=== PATIENT | female | born 1955 | race Caucasian/White ===

== ENCOUNTER 2020-08-21 17:23 | Outpatient (CLI) | payer OTHER, SELFPAY ==
[2020-08-21 17:40] LABS: Basophils Absolute Auto 0.07 K/mm3 (0.00-0.10); Basophils Percent Auto 0.7 % (0.0-1.0); Eosinophils Absolute Auto 0.15 K/mm3 (0.02-0.50); Eosinophils Percent Auto 1.5 % (1.0-6.0); Hematocrit 39.5 % (35.0-49.0); Hemoglobin 13.1 g/dL (12.0-15.0); Immature Granulocyte Absolute 0.03 K/mm3 (0.00-0.00); Immature Granulocyte Percent A 0.3 % (0.0-0.0); Lymphocytes Absolute Auto 2.94 K/mm3 (1.10-4.50); Lymphocytes Percent Auto 29.6 % (18.0-42.0); Mean Corpuscular HGB Conc 33.2 g/dL (32.0-36.0); Mean Corpuscular Volume 87.4 fL (78.0-102.0); Mean Platelet Volume 9.1 fl (9.2-11.8); Monocytes Absolute Auto 0.53 K/mm3 (0.10-0.90); Monocytes Percent Auto 5.3 % (2.0-11.0); Neutrophils Absolute Auto 6.2 K/mm3 (1.7-7.2); Neutrophils Percent Auto 62.6 % (50.0-70.0); Platelet Count Result 314 K/mm3 (150-420); Red Blood Count 4.52 M/mm3 (4.20-5.40); Red Cell Distribution Width 12.9 % (11.6-14.4); White Blood Count 9.9 K/mm3 (4.8-10.8)
[2020-08-21 17:44] LABS: Add Urine Microscopic? NO; Appearance Urine Clear (Clear); Bilirubin Urine Negative (Negative); Blood Urine Negative (Negative); Color Urine Yellow (Yellow); Glucose Urine UA Negative (Negative); Ketones Urine Negative (Negative); Leukocyte Esterase Ur Negative (Negative); Nitrate Urine Negative (Negative); Protein Urine Negative (Negative); Specific Grav Ur <= 1.005 (1.010-1.020); Urobilinogen Urine 0.2 mg/dL (0.2-1.0)
[2020-08-21 18:23] LABS: Alanine Aminotransferase 17 U/L (14-59); Albumin Level 3.7 g/dL (3.4-5.0); Alkaline Phosphatase 131 U/L (46-116); Amylase 66 U/L (25-115); Anion Gap 9 mmol/L (8-16); Aspartate Amino Transferase 17 U/L (15-37); Bilirubin,Total 0.2 mg/dL (0.00-1.00); Blood Urea Nitrogen 9 mg/dL (7-18); Calcium 8.8 mg/dL (8.5-10.1); Carbon Dioxide 30 mmol/L (21-32); Chloride 103 mmol/L (98-108); Estimated Glomerular Filt Rate 56; Glucose 81 mg/dL (70-99); Lipase 112 U/L (73-393); Osmolality Calculated 291 mOsm/kg (285-295); Sodium 142 mmol/L (136-145); Total Protein 7.4 g/dL (6.4-8.2)
== END 2020-08-21 17:24 | disposition home or self-care (01) ==
LOC: CHSLAB 17:27
PROVIDERS: PCP Family Medicine; Visit Provider Family Medicine
DX: R10.2 Pelvic and perineal pain (principal)
CPT/HCPCS: 36415; 80053; 81003; 82150; 83690; 85025; 87086

== ENCOUNTER 2020-10-30 08:31 | Outpatient (CLI) | payer OTHER, SELFPAY ==
--- NOTE | ~2020-10-30 | MM_ITS ---
EXAMINATION: MM screening del BI w belinda HISTORY: Screening mammogram TECHNIQUE: Craniocaudal and mediolateral oblique 3-D tomosynthesis images were obtained and synthetic 2-D images were generated. CAD analysis was submitted and interpreted. COMPARISON: 01/22/2010 bilateral digital screening mammogram examination BREAST PARENCHYMAL COMPOSITION: There are scattered areas of fibroglandular density. FINDINGS: There is no evidence of suspicious mass, calcification, or architectural distortion to sugg est malignancy in either breast. There has been no suspicious interval change. IMPRESSION: 1. No mammographic evidence of malignancy. 2. Recommend routine screening mammography in one year. BI-RADS Category 1: Negative Reviewed, dictated and finalized at location A.
== END 2020-10-30 08:32 | disposition home or self-care (01) ==
LOC: CHSIMG 08:32
PROVIDERS: PCP Family Medicine; Visit Provider Family Medicine
DX: Z12.31 Encounter for screening mammogram for malignant neoplasm of breast (principal)
CPT/HCPCS: 77063; 77067

== ENCOUNTER 2020-11-09 10:51 | Outpatient (CLI) | payer OTHER, SELFPAY ==
--- NOTE | ~2020-11-09 | XR_ITS ---
EXAMINATION: XR abdomen obstructive series DATE: 11/09/2020 11:12 INDICATION: Generalized abdominal pain TECHNIQUE: Upright and supine views of the abdomen were obtained. COMPARISON: None. FINDINGS: The bowel gas pattern is nonspecific. No free intraperitoneal gas is identified. The visual ized lung bases are clear. No definitely dilated loops of bowel are identified. There are phleboliths of the pelvis. 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 IMPRESSION: 1. Nonspecific bowel gas pattern. Reviewed, dictated and finalized at location B.
== END 2020-11-09 10:52 | disposition home or self-care (01) ==
LOC: CHSIMG 10:53
PROVIDERS: PCP Family Medicine; Visit Provider Family Medicine
DX: R10.84 Generalized abdominal pain (principal)
CPT/HCPCS: 74019

== ENCOUNTER 2020-11-13 07:57 | Outpatient (CLI) | payer OTHER, SELFPAY ==
--- NOTE | ~2020-11-13 | CT_ITS ---
EXAMINATION: CT abdomen pelvis w con DATE: 11/13/2020 08:46 INDICATION: Lower abdominal pain for 3 weeks TECHNIQUE: Computed tomography (CT) of the abdomen and pelvis was performed with 100 cc Omnipaque 350 intravenous contrast. Automated exposure control and iterative reconstruction technique were employe d. Exam dose: 181.07 mGy-cm total exam DLP. COMPARISON: 11/19/2020 obstructive series FINDINGS: The lung bases are clear. Normal heart size. No pericardial or pleural effusion. Small sliding hiatal hernia. The liver, gallbladder, bile ducts, spleen, pancreas, pancreatic duct, and adrenal glands and kidneys are unremarkable. No urinary tract calculus or hydroureteronephrosis. The urinary bladder is unremar kable. Normal caliber of the abdominal aorta. No intraperitoneal or retroperitoneal or pelvic mass lesion or adenopathy or ascites. Prominent bilateral adnexal vessels. Small amount of free fluid in the dependent pelvis. Small fat-containing umbilical hernia. There are some fluid levels in the distal small bowel and proximal colon. There is a long continuous segment of terminal and distal ileum with prominent thickening of the bowel wall and mucosal enhancem ent, consistent with infectious or inflammatory enteritis. Up to 7 x 12.7 mm right lower quadrant lymph nodes, likely reactive. Normal caliber of the abdominal aorta. No periaortic or aortocaval lymphadenopathy. Moderately prominent degenerative disc disease at L5-S1. No suspicious osteolytic or osteoblastic lesions. IMPRESSION: Prominent soft tissue thickening of the wall and enhancement of the mucosa of the distal ileum and terminal ileum, consistent with an enteritis, which may be of infectious or inflammatory e tiology Mild right lower quadrant likely reactive mesenteric lymphadenopathy Reviewed, dictated and finalized at Location A. Reviewed, dictated and finalized at location A. IMPRESSION: Prominent soft tissue thickening of the wall and enhancement of th e mucosa of the distal ileum and terminal ileum, consistent with an enteritis, which may be of infectious or inflammatory etiology Mild right lower quadrant likely reactive mesenteric lymphadenopathy
[2020-11-13 08:16] LABS: Estimated Glomerular Filt Rate 59
== END 2020-11-13 07:58 | disposition home or self-care (01) ==
LOC: CHSIMG 07:58
PROVIDERS: PCP Family Medicine; Visit Provider Family Medicine
DX: R10.84 Generalized abdominal pain (principal)
CPT/HCPCS: 74177; Q9967

== ENCOUNTER → 2020-12-18 08:03 | Outpatient (CLI) | payer OTHER, SELFPAY ==
[2020-12-18 19:38] LABS: SARS-CoV-2 RNA PCR Negative
== END ==
PROVIDERS: PCP Family Medicine; Visit Provider Internal Medicine Gastroenterology
DX: Z01.812 Encounter for preprocedural laboratory examination (principal); Z20.822 Contact with and (suspected) exposure to COVID-19
CPT/HCPCS: C9803; U0003; U0005

== ENCOUNTER 2020-12-21 02:27 | Day surgery (SDC) | payer OTHER, SELFPAY ==
[2020-12-14 14:17] VITALS: BMI 18.8
[2020-12-21 10:04] VITALS: BP 134/86; PULSE 99; RESP 18; TEMP 36.5; O2SAT 98; BMI 18.2
[2020-12-21] MEDS: LACTATED RINGERS 1,000 ML 150 ML IV CONT (10:14)
--- NOTE | 2020-12-21 10:59 | PM.HPGS ---
History of Present Illness History of Present Illness Consent: Risks, benefits, and alternatives have been discussed and questions answered. Patient agrees to proceed with procedure. Chief complaint: Abnormal CT Scan, Abdomen Pain Narrative: Anastasiia French is a 65 year old female with abdominal pain and weight loss who had an abnormal CT scan Review of Systems Review of Systems: All systems reviewed & are unremarkable except as noted in HPI and below PMFSH Past Medical History Medical History Abnormal CT scan, colon Tobacco use Social History Social History Smoking packs per day: 0.5 Smoking cigarettes per day: 10.0 Years smoked: 40 Smoking pack-years: 20.00 Smoking status: Current some day smoker Tobacco type: cigarettes Alcohol intake: former Alcohol use details: quit drinking one year ago, was a daily beer drinker Substance use: never Substance use type: does not use Living arrangements: with family Additional living arrangements comments: lives with spouse Spiritual care concerns: No Meds Home Medications and Allergies Home Medications Medication Instructions Recorded Confirmed Type No Home Medications 12/08/20 12/14/20 History Allergies Allergy/AdvReac Type Severity Reaction Status Date / Time No Known Drug Allergies Allergy n/a Verified 12/21/20 10:03 Vital Signs Vital Signs - 24 hr 12/21/20 10:04 Temperature 36.5 C Pulse Rate 99 Respiratory Rate 18 Blood Pressure 134/86 Pulse Oximetry 98 Exam Resp: Auscultation: clear to auscultation bilaterally Cardio: Rate: regular rate Rhythm: regular rhythm GI: GI Palp: Yes Soft to palpation and No Tenderness to palpation present (GI) Assessment and Plan Assessment and plan (1) Abnormal CT scan, gastrointestinal tract: Code(s): R93.3 - Abnormal findings on diagnostic imaging of other parts of digestive tract Status: Acute Assessment and Plan: Colonoscopy with possible biopsy or polypectomy or cautery or injection of substances.
--- NOTE | 2020-12-21 11:13 | WPDANESEPPF ---
Anes - Initial Pre Proc Eval Procedure: Operation Date: 12/21/20 11:15 Proposed Procedures p Colonoscopy - Phuc Worley MD Date/Time: 12/21/20 11:13 Surgeon: Phuc Worley MD Pre Op Diagnosis: Abnormal CT Scan, Abdomen Pain Patient Data Age: 65 Gender: F Height: 1.68 m Weight: 51.3 kg Last Vital Signs Temp 97.7 F 12/21/20 10:04 Pulse 99 12/21/20 10:04 Resp 18 12/21/20 10:04 BP 134/86 12/21/20 10:04 Pulse Ox 98 12/21/20 10:04 Allergies Allergy/AdvReac Type Severity Reaction Status Date / Time No Known Drug Allergies Allergy n/a Verified 12/21/20 10:03 Home Medications Medication Instructions Recorded Confirmed Type No Home Medications 12/08/20 12/14/20 History Patient hx anesthesia problems: none Family hx anesthesia problems: none PMFSH Past Medical History Medical History Abnormal CT scan, colon Tobacco use Social History Social History Smoking packs per day: 0.5 Smoking cigarettes per day: 10.0 Years smoked: 40 Smoking pack-years: 20.00 Smoking status: Current some day smoker Tobacco type: cigarettes Alcohol intake: former Alcohol use details: quit drinking one year ago, was a daily beer drinker Substance use: never Substance use type: does not use Living arrangements: with family Additional living arrangements comments: lives with spouse Spiritual care concerns: No Anes - Eval Final PreProcedure Day of Procedure 12/21/20 11:13 Patient weight: normal Heart: regular rate and rhythm Lungs: clear to auscultation Airway: Mallampati scale class II Neurological: alert and oriented Last oral intake: >/= 8 hours ASA classification: II Emergent: no Anesthetic plan: proceed Anesthesia type and monitoring: general and standard monitoring Informed Consent: The patient's anesthetic plan and its attendant risks and benefits were discussed with the patient/family/POA. Questions were solicited and answers provided to the satisfaction of the patient/family/POA.
[2020-12-21 11:29] VITALS: BP 136/80; PULSE 72; RESP 18; O2SAT 98
[2020-12-21 11:39] VITALS: BP 135/83; PULSE 77; RESP 19; O2SAT 96
[2020-12-21 11:49] VITALS: BP 135/83; PULSE 71; RESP 16; O2SAT 99
== END 2020-12-21 12:06 | disposition home or self-care (01) ==
PROVIDERS: PCP Family Medicine; Visit Provider Internal Medicine Gastroenterology
PROC: 0DJD8ZZ Inspection of Lower Intestinal Tract, Via Natural or Artificial Opening Endoscopic (ICD-10-PCS; CPT 45378; principal; 2020-12-21 11:15)
DX: K52.9 Noninfective gastroenteritis and colitis, unspecified (principal); F17.210 Nicotine dependence, cigarettes, uncomplicated
CPT/HCPCS: 45380; 88305; J7120

== ENCOUNTER 2020-12-24 13:16 | Outpatient (CLI) | payer OTHER, SELFPAY ==
[2020-12-27 13:20] LABS: ANCA Screen Negative (Negative); Myeloperoxidase Ab <1.0 AI (<1.0); Proteinase-3 Ab <1.0 AI (<1.0); S cerevisiae Ab (IgA) 13.7 U (<=20.0); S cerevisiae Ab (IgG) 14.9 U (<=20.0)
== END 2020-12-24 13:17 | disposition home or self-care (01) ==
LOC: ANHLAB 13:18
PROVIDERS: PCP Family Medicine; Visit Provider Internal Medicine Gastroenterology
DX: R93.3 Abnormal findings on diagnostic imaging of other parts of digestive tract (principal)
CPT/HCPCS: 36415; 86021; 86671

== ENCOUNTER 2021-01-26 09:49 | Outpatient (CLI) | payer OTHER, SELFPAY ==
[2021-01-26 10:07] LABS: Hematocrit 36.8 % (37.0-47.0); Hemoglobin 12.1 g/dL (12.0-15.0); Mean Corpuscular HGB Conc 32.9 g/dl (32-36); Mean Corpuscular Hemoglobin 29.4 pg (26-34); Mean Corpuscular Volume 89.5 fl (80-100); Mean Platelet Volume 7.9 fl (7.4-10.4); Platelet Count Result 412 k/mm3 (150-375); Red Blood Count 4.11 M/mm3 (4.2-5.4); Red Cell Distribution Width 15.8 % (11.5-14.5); White Blood Count 11.2 K/mm3 (4.5-10.0)
[2021-01-26 10:20] LABS: Alanine Aminotransferase 12 U/L (4-35); Alkaline Phosphatase 101 U/L (38-126); Anion Gap 11 mmol/L (8-16); Aspartate Amino Transferase 19 U/L (14-36); Bilirubin,Total 0.3 mg/dL (0.2-1.3); Blood Urea Nitrogen 14 mg/dL (7-17); CRP 8.9 mg/dL (<1.0); Calcium 9.1 mg/dL (8.4-10.2); Carbon Dioxide 28 mmol/L (22-30); Chloride 102 mmol/L (98-107); Estimated Glomerular Filt Rate > 60; Glucose 112 mg/dL (65-110); Potassium 3.8 mmol/L (3.4-5.0); Sodium 141 mmol/L (137-145)
[2021-01-26 11:17] LABS: Erythrocyte Sedimentation Rate 58 mm/hr (0-20)
== END 2021-01-26 09:50 | disposition home or self-care (01) ==
PROVIDERS: PCP Family Medicine; Visit Provider Nurse Practitioner Family
DX: R10.9 Unspecified abdominal pain (principal)
CPT/HCPCS: 36415; 80053; 85027; 85652; 86140

== ENCOUNTER 2021-03-04 11:22 | Outpatient (NON) | payer OTHER, SELFPAY ==
[2021-03-11 20:01] LABS: Calprotectin, Stool 677 mcg/g
== END 2021-03-04 11:23 | disposition home or self-care (01) ==
LOC: CHSLAB 11:24
PROVIDERS: Visit Provider Internal Medicine Gastroenterology
DX: K50.119 Crohn's disease of large intestine with unspecified complications (principal)
CPT/HCPCS: 83993

== ENCOUNTER 2021-12-02 13:57 | Outpatient (CLI) | payer OTHER, SELFPAY ==
[2021-12-02 14:11] LABS: Basophils Absolute Auto 0.06 K/mm3 (0.00-0.10); Basophils Percent Auto 0.7 % (0.0-1.0); Eosinophils Absolute Auto 0.21 K/mm3 (0.02-0.50); Eosinophils Percent Auto 2.5 % (1.0-6.0); Hematocrit 39.5 % (35.0-49.0); Hemoglobin 13.2 g/dL (12.0-15.0); Immature Granulocyte Absolute 0.01 K/mm3 (0.00-0.00); Immature Granulocyte Percent A 0.1 % (0.0-0.0); Lymphocytes Absolute Auto 3.88 K/mm3 (1.10-4.50); Lymphocytes Percent Auto 45.6 % (18.0-42.0); Mean Corpuscular HGB Conc 33.4 g/dL (32.0-36.0); Mean Corpuscular Hemoglobin 29.4 pg (27.0-31.0); Mean Platelet Volume 9.3 fl (9.2-11.8); Monocytes Absolute Auto 0.44 K/mm3 (0.10-0.90); Monocytes Percent Auto 5.2 % (2.0-11.0); Neutrophils Absolute Auto 3.9 K/mm3 (1.7-7.2); Neutrophils Percent Auto 45.9 % (50.0-70.0); Platelet Count Result 247 K/mm3 (150-420); Red Blood Count 4.49 M/mm3 (4.20-5.40); Red Cell Distribution Width 12.8 % (11.6-14.4); White Blood Count 8.5 K/mm3 (4.8-10.8)
[2021-12-02 14:33] LABS: Albumin Level 3.8 g/dL (3.4-5.0); Alkaline Phosphatase 104 U/L (46-116); Anion Gap 11 mmol/L (8-16); Aspartate Amino Transferase < 10 U/L (15-37); Bilirubin,Total 0.2 mg/dL (0.00-1.00); Blood Urea Nitrogen 11 mg/dL (7-18); CRP < 0.5 mg/dL (0.0-0.9); Calcium 9.1 mg/dL (8.5-10.1); Carbon Dioxide 27 mmol/L (21-32); Chloride 103 mmol/L (98-108); Estimated Glomerular Filt Rate > 60; Glucose 107 mg/dL (70-99); Osmolality Calculated 291 mOsm/kg (285-295); Potassium 3.8 mmol/L (3.5-5.1); Sodium 141 mmol/L (136-145); Total Protein 7.7 g/dL (6.4-8.2)
[2021-12-02 14:47] LABS: Alanine Aminotransferase 16 U/L (14-59)
[2021-12-10 01:07] LABS: Calprotectin, Stool 643 mcg/g
== END 2021-12-02 13:58 | disposition home or self-care (01) ==
LOC: CHSLAB 14:02
PROVIDERS: PCP Family Medicine; Visit Provider Internal Medicine Gastroenterology
DX: K50.013 Crohn's disease of small intestine with fistula (principal); Z79.899 Other long term (current) drug therapy
CPT/HCPCS: 36415; 80053; 83993; 85025; 86140

== ENCOUNTER 2022-03-08 10:19 | Outpatient (CLI) | payer OTHER, SELFPAY ==
--- NOTE | ~2022-03-08 | XR_ITS ---
XR hand LT min 3V DATE: 03/08/2022 10:42 INDICATION: Left hand and finger pain TECHNIQUE: 3 views of left hand COMPARISON: None FINDINGS: There is osteopenia. No fracture, dislocation, periosteal reaction or bone destruction, erosive change or chondrocalcinosi s. Joint spaces are relatively preserved. IMPRESSION: Osteopenia Reviewed, dictated and finalized at location B. TER IMPRESSION: Osteopenia
== END 2022-03-08 10:20 | disposition home or self-care (01) ==
LOC: CHSIMG 10:21
PROVIDERS: PCP Family Medicine; Visit Provider Family Medicine
DX: M65.30 Trigger finger, unspecified finger (principal)
CPT/HCPCS: 73130

== ENCOUNTER 2022-03-10 10:12 | Outpatient (CLI) | payer OTHER, SELFPAY ==
--- NOTE | ~2022-03-10 | DEXA_ITS ---
Bone Density Report Name: LUCIANA MOJICA Age: 66 Sex: Female Ethnicity: White Date of : 1955 Indication: postmenopausal; screening for osteoporosis; height loss; Referring Provider: Anselmo Avalos Study: Bone densitometry was performed. Exam Date: March 10, 2022 Accession number: [id number] Bone Density: Region BMD T-score Z-score Classification AP Spine(L1-L4) 0.721 -3.0 -1.2 Osteoporosis Femoral Neck (Left) 0.358 -4.4 -2.9 Osteoporosis Total Hip (Left) 0.466 -3.9 -2.7 Osteoporosis Femoral Neck (Right) 0.552 -2.7 -1.2 Osteoporosis Total Hip (Right) 0.620 -2.6 -1.4 Osteoporosis Femoral Neck Mean 0.455 -3.6 -2.1 Osteoporosis Total Hip Mean 0.543 -3.3 -2.1 Osteoporosis World Health Organization criteria for BMD impression classify patients as: Normal (T-score at or above -1.0), Osteopenia (T-score between -1.0 and -2.5), or Osteoporosis (T-score at or below -2.5). 10-year Fracture Risk: FRAX not reported because: Some T-score for Spine Total or Hip Total or Femoral Neck at or below -2.5 Clinical Information Provided by Patient: Smokes Patient maximum height was 66 Menopause Age: 50 No regular weight bearing exercise Does not regularly consume dairy products Drinks caffeinated beverages Onset of menses at age 15 Number of children 6 Impression: The patient has osteoporosis, based on the Left Femoral Neck T-score. The patient has risk factors, including: smoking. Discussion: HIGH RISK OF FRACTURE. BONE DENSITY IS UNDESIRABLY LOW AT ONE OR MORE SKELETAL SITES, CONSISTENT WITH OSTEOPOROSIS. ALSO, BONE DENSITY IS LOWER THAN EXPECTED FOR AGE AND SEX AT ONE OR MORE SKELETAL SITES; RECOMMEND A DILIGENT SEARCH FOR SECONDARY CAUSES OF BONE LOSS. This patient's lowest T-score meets the World Health Organization's (WHO) criteria for osteoporosis at one or more sites (T-score -2.5 or below). In untreated patients, the risk of osteoporotic fracture increases approximately two-fold for each 1.0 SD decrease in T-score. Low bone density is not the only risk factor for fracture; also consider factors such as patient's age, frailty or poor health, risk of falling, risk of injury, previous osteoporotic fracture, family history of osteoporosis, cigarette smoking, low body weight, etc. Not everyone with low bone mineral density has osteoporosis; osteomalacia and other metabolic bone disorders should also be considered. Patients who have osteoporosis should be evaluated for specific diseases and conditions (secondary causes) that may cause or contribute to bone loss. The [place] [employer] (AACE) and National Osteoporosis Foundation (NOF) recommend pharmacologic intervention for all postmenopausal women whose T-score is in this range. Also, this patient
== END 2022-03-10 10:13 | disposition home or self-care (01) ==
LOC: CHSIMG 10:13
PROVIDERS: PCP Family Medicine; Visit Provider Family Medicine
DX: Z78.0 Asymptomatic menopausal state (principal)
CPT/HCPCS: 77080

== ENCOUNTER 2022-07-21 14:01 | Outpatient (CLI) | payer OTHER, SELFPAY ==
[2022-07-21 14:18] LABS: Basophils Absolute Auto 0.05 K/mm3 (0.00-0.10); Basophils Percent Auto 0.5 % (0.0-1.0); Eosinophils Absolute Auto 0.16 K/mm3 (0.02-0.50); Eosinophils Percent Auto 1.5 % (1.0-6.0); Hematocrit 38.3 % (35.0-49.0); Hemoglobin 13.1 g/dL (12.0-15.0); Immature Granulocyte Absolute 0.03 K/mm3 (0.00-0.00); Immature Granulocyte Percent A 0.3 % (0.0-0.0); Lymphocytes Absolute Auto 4.55 K/mm3 (1.10-4.50); Lymphocytes Percent Auto 43.3 % (18.0-42.0); Mean Corpuscular HGB Conc 34.2 g/dL (32.0-36.0); Mean Corpuscular Hemoglobin 31.3 pg (27.0-31.0); Mean Corpuscular Volume 91.4 fL (78.0-102.0); Mean Platelet Volume 9.4 fl (9.2-11.8); Monocytes Absolute Auto 0.42 K/mm3 (0.10-0.90); Neutrophils Absolute Auto 5.3 K/mm3 (1.7-7.2); Neutrophils Percent Auto 50.4 % (50.0-70.0); Platelet Count Result 238 K/mm3 (150-420); Red Blood Count 4.19 M/mm3 (4.20-5.40); Red Cell Distribution Width 12.2 % (11.6-14.4); White Blood Count 10.5 K/mm3 (4.8-10.8)
[2022-07-21 15:17] LABS: Alanine Aminotransferase 24 U/L (14-59); Albumin Level 4.2 g/dL (3.4-5.0); Alkaline Phosphatase 105 U/L (46-116); Anion Gap 10 mmol/L (8-16); Aspartate Amino Transferase 19 U/L (15-37); Bilirubin,Total 0.3 mg/dL (0.00-1.00); Blood Urea Nitrogen 14 mg/dL (7-18); Calcium 9.1 mg/dL (8.5-10.1); Carbon Dioxide 31 mmol/L (21-32); Chloride 102 mmol/L (98-108); Estimated Glomerular Filt Rate 56; Glucose 139 mg/dL (70-99); Osmolality Calculated 298 mOsm/kg (285-295); Potassium 3.8 mmol/L (3.5-5.1); Sodium 143 mmol/L (136-145); Total Protein 7.9 g/dL (6.4-8.2)
[2022-07-21 15:28] LABS: CRP < 0.5 mg/dL (0.0-0.9)
== END 2022-07-21 14:02 | disposition home or self-care (01) ==
PROVIDERS: PCP Family Medicine; Visit Provider Internal Medicine Gastroenterology
DX: K50.013 Crohn's disease of small intestine with fistula (principal); Z79.899 Other long term (current) drug therapy
CPT/HCPCS: 36415; 80053; 85025; 86140

== ENCOUNTER 2022-08-23 13:10 | Outpatient (CLI) | payer MEDICARE, MEDICAID, SELFPAY ==
[2022-08-23 13:36] LABS: Hemoglobin A1C 5.5 % (<5.7)
== END 2022-08-23 13:11 | disposition home or self-care (01) ==
PROVIDERS: PCP Family Medicine; Visit Provider Family Medicine
DX: R73.9 Hyperglycemia, unspecified (principal); I10 Essential (primary) hypertension
CPT/HCPCS: 36415; 83036

== ENCOUNTER 2022-09-17 07:24 | Outpatient (CLI) | payer MEDICARE, MEDICAID, SELFPAY ==
--- NOTE | ~2022-09-17 | MR_ITS ---
MRI of the brain Clinical History: Dizziness and giddiness Technique: Axial and sagittal T1-weighted images were acquired. These were followed by axial T2-weigh ellen, diffusion weighted, gradient, and FLAIR images. Following intravenous administration of 12 cc Mu ltiHance gadolinium, T1-weighted fat-sat imaging was performed in the axial and coronal planes. Findings: There is no acute infarct, intracranial hemorrhage, or mass lesion. Small focal area of FLA IR hyperintensity noted in the left periventricular white matter. Ventricles and subarachnoid spaces are unremarkable. Orbits are unremarkable. Paranasal sinuses and m astoid air cells are clear. Major intracranial flow voids appear intact. Sagittal midline structures are intact. No abnormal postcontrast enhancement identified. IMPRESSION: No acute infarct, intracranial hemorrhage, or mass lesion. Probable minimal chronic microvascular ischemic change, as above. Reviewed, dictated and finalized at location .
[2022-09-17 07:53] LABS: Estimated Glomerular Filt Rate 58
== END 2022-09-17 07:25 | disposition home or self-care (01) ==
LOC: CHSIMG 07:26
PROVIDERS: PCP Family Medicine; Visit Provider Family Medicine
DX: R42 Dizziness and giddiness (principal)
CPT/HCPCS: 70553; A9577

== ENCOUNTER 2022-10-31 12:18 | Outpatient (CLI) | payer MEDICARE, MEDICAID, SELFPAY ==
[2022-10-31 12:56] LABS: Basophils Absolute Auto 0.06 K/mm3 (0.00-0.10); Basophils Percent Auto 0.7 % (0.0-1.0); Eosinophils Absolute Auto 0.11 K/mm3 (0.02-0.50); Eosinophils Percent Auto 1.4 % (1.0-6.0); Hematocrit 34.1 % (35.0-42.0); Immature Granulocyte Absolute 0.04 K/mm3 (0.00-0.00); Immature Granulocyte Percent A 0.5 % (0.0-0.0); Lymphocytes Absolute Auto 3.57 K/mm3 (1.10-4.50); Lymphocytes Percent Auto 43.9 % (18.0-42.0); Mean Corpuscular HGB Conc 35.2 g/dL (32.0-36.0); Mean Corpuscular Hemoglobin 30.7 pg (27.0-31.0); Mean Corpuscular Volume 87.2 fL (78.0-102.0); Monocytes Absolute Auto 0.42 K/mm3 (0.10-0.90); Monocytes Percent Auto 5.2 % (2.0-11.0); Neutrophils Absolute Auto 3.9 K/mm3 (1.7-7.2); Neutrophils Percent Auto 48.3 % (50.0-70.0); Platelet Count Result 259 K/mm3 (150-420); Red Blood Count 3.91 M/mm3 (4.20-5.40); Red Cell Distribution Width 12.2 % (11.6-14.4); White Blood Count 8.1 K/mm3 (4.8-10.8)
[2022-10-31 13:47] LABS: Alanine Aminotransferase 35 U/L (14-59); Albumin Level 3.8 g/dL (3.4-5.0); Alkaline Phosphatase 116 U/L (46-116); Anion Gap 7 mmol/L (8-16); Aspartate Amino Transferase 20 U/L (15-37); Bilirubin,Total 0.3 mg/dL (0.00-1.00); Blood Urea Nitrogen 16 mg/dL (7-18); CRP 0.5 mg/dL (0.0-0.9); Calcium 9.2 mg/dL (8.5-10.1); Carbon Dioxide 33 mmol/L (21-32); Chloride 102 mmol/L (98-108); Estimated Glomerular Filt Rate 56; Glucose 103 mg/dL (70-99); Osmolality Calculated 295 mOsm/kg (285-295); Potassium 3.6 mmol/L (3.5-5.1); Sodium 142 mmol/L (136-145); Total Protein 7.2 g/dL (6.4-8.2)
[2022-11-02 11:17] LABS: NIL 0.08 IU/mL; Quantiferon TB Plus, 1T NEGATIVE (NEGATIVE); TB1-NIL 0.03 IU/mL; TB2-NIL 0.01 IU/mL
== END 2022-10-31 12:19 | disposition home or self-care (01) ==
LOC: CHSLAB 12:21
PROVIDERS: PCP Family Medicine; Visit Provider Internal Medicine Gastroenterology
DX: K50.819 Crohn's disease of both small and large intestine with unspecified complications (principal); Z79.899 Other long term (current) drug therapy
CPT/HCPCS: 36415; 80053; 85025; 86140; 86480

== ENCOUNTER 2022-12-02 11:46 | Outpatient (CLI) | payer MEDICARE, MEDICAID, SELFPAY ==
[2022-12-09 20:32] LABS: Calprotectin, Stool 252 mcg/g
== END 2022-12-02 11:47 | disposition home or self-care (01) ==
LOC: CHSLAB 11:46
PROVIDERS: PCP Family Medicine; Visit Provider Internal Medicine Gastroenterology
DX: K50.819 Crohn's disease of both small and large intestine with unspecified complications (principal); R19.5 Other fecal abnormalities
CPT/HCPCS: 83993

== ENCOUNTER 2023-02-01 11:24 | Outpatient (CLI) | payer MEDICARE, MEDICAID, SELFPAY ==
[2023-02-01 11:41] LABS: Appearance Urine Clear (Clear); Basophils Absolute Auto 0.07 K/mm3 (0.00-0.10); Bilirubin Urine Negative (Negative); Blood Urine Negative (Negative); Color Urine Light Yellow (Yellow); Eosinophils Absolute Auto 0.11 K/mm3 (0.02-0.50); Eosinophils Percent Auto 1.5 % (1.0-6.0); Glucose Urine UA Negative (Negative); Hemoglobin 13.1 g/dL (11.7-13.8); Immature Granulocyte Absolute 0.02 K/mm3 (0.00-0.00); Immature Granulocyte Percent A 0.3 % (0.0-0.0); Ketones Urine Negative (Negative); Leukocyte Esterase Ur Negative (Negative); Lymphocytes Percent Auto 41.4 % (18.0-42.0); Mean Corpuscular HGB Conc 34.5 g/dL (32.0-36.0); Mean Corpuscular Hemoglobin 30.8 pg (27.0-31.0); Mean Corpuscular Volume 89.2 fL (78.0-102.0); Mean Platelet Volume 9.1 fl (9.2-11.8); Monocytes Absolute Auto 0.41 K/mm3 (0.10-0.90); Monocytes Percent Auto 5.7 % (2.0-11.0); Neutrophils Absolute Auto 3.6 K/mm3 (1.7-7.2); Neutrophils Percent Auto 50.1 % (50.0-70.0); Nitrate Urine Negative (Negative); Platelet Count Result 221 K/mm3 (150-420); Protein Urine Negative (Negative); Red Blood Count 4.26 M/mm3 (4.20-5.40); Red Cell Distribution Width 12.3 % (11.6-14.4); Specific Grav Ur <= 1.005 (1.010-1.020); Urobilinogen Urine 0.2 mg/dL (0.2-1.0); White Blood Count 7.3 K/mm3 (4.8-10.8)
[2023-02-01 11:46] LABS: Add Urine Microscopic? NO
[2023-02-01 11:47] LABS: Creatinine Urine < 13.00 mg/dL (40-278); Microalbumin Urine Random < 13.0 mg/L
[2023-02-01 13:00] LABS: Alanine Aminotransferase 23 U/L (14-59); Alkaline Phosphatase 93 U/L (46-116); Anion Gap 11 mmol/L (8-16); Aspartate Amino Transferase 13 U/L (15-37); Bilirubin,Total 0.4 mg/dL (0.00-1.00); Blood Urea Nitrogen 13 mg/dL (7-18); Calcium 9.2 mg/dL (8.5-10.1); Carbon Dioxide 29 mmol/L (21-32); Chloride 102 mmol/L (98-108); Cholesterol 226 mg/dL (0-200); Estimated Glomerular Filt Rate > 60; Glucose 100 mg/dL (70-99); HDL Direct 75 mg/dL (40-60); LDL Cholesterol Calculated 137 mg/dL (<130); Osmolality Calculated 294 mOsm/kg (285-295); Sodium 142 mmol/L (136-145); Thyroid Stimulating Hormone 1.99 uIU/mL (0.36-3.74); Total Protein 7.4 g/dL (6.4-8.2); Triglycerides 72 mg/dL (0-150)
== END 2023-02-01 11:25 | disposition home or self-care (01) ==
LOC: CHSLAB 11:28
PROVIDERS: PCP Family Medicine; Visit Provider Family Medicine
DX: I10 Essential (primary) hypertension (principal)
CPT/HCPCS: 36415; 80053; 80061; 81003; 82043; 84443; 85025

== ENCOUNTER 2023-02-06 09:31 | Outpatient (CLI) | payer MEDICARE, MEDICAID, SELFPAY ==
[2023-02-06 09:55] LABS: Basophils Absolute Auto 0.05 K/mm3 (0.00-0.10); Basophils Percent Auto 0.6 % (0.0-1.0); Eosinophils Absolute Auto 0.08 K/mm3 (0.02-0.50); Hematocrit 37.5 % (35.0-42.0); Hemoglobin 12.9 g/dL (11.7-13.8); Immature Granulocyte Absolute 0.03 K/mm3 (0.00-0.00); Immature Granulocyte Percent A 0.4 % (0.0-0.0); Lymphocytes Absolute Auto 2.31 K/mm3 (1.10-4.50); Lymphocytes Percent Auto 29.1 % (18.0-42.0); Mean Corpuscular HGB Conc 34.4 g/dL (32.0-36.0); Mean Corpuscular Hemoglobin 30.4 pg (27.0-31.0); Mean Corpuscular Volume 88.2 fL (78.0-102.0); Monocytes Absolute Auto 0.38 K/mm3 (0.10-0.90); Monocytes Percent Auto 4.8 % (2.0-11.0); Neutrophils Absolute Auto 5.1 K/mm3 (1.7-7.2); Neutrophils Percent Auto 64.1 % (50.0-70.0); Platelet Count Result 217 K/mm3 (150-420); Red Blood Count 4.25 M/mm3 (4.20-5.40); Red Cell Distribution Width 12.1 % (11.6-14.4); White Blood Count 7.9 K/mm3 (4.8-10.8)
[2023-02-06 10:31] LABS: Alanine Aminotransferase 22 U/L (14-59); Albumin Level 3.9 g/dL (3.4-5.0); Alkaline Phosphatase 87 U/L (46-116); Anion Gap 10 mmol/L (8-16); Aspartate Amino Transferase 13 U/L (15-37); Bilirubin,Total 0.4 mg/dL (0.00-1.00); Blood Urea Nitrogen 16 mg/dL (7-18); Calcium 9.2 mg/dL (8.5-10.1); Carbon Dioxide 31 mmol/L (21-32); Chloride 101 mmol/L (98-108); Estimated Glomerular Filt Rate > 60; Glucose 104 mg/dL (70-99); Osmolality Calculated 295 mOsm/kg (285-295); Potassium 3.7 mmol/L (3.5-5.1); Sodium 142 mmol/L (136-145); Total Protein 7.3 g/dL (6.4-8.2)
[2023-02-06 10:46] LABS: CRP < 0.5 mg/dL (0.0-0.9)
== END 2023-02-06 09:32 | disposition home or self-care (01) ==
LOC: CHSLAB 09:34
PROVIDERS: PCP Family Medicine; Visit Provider Internal Medicine Gastroenterology
DX: K50.819 Crohn's disease of both small and large intestine with unspecified complications (principal); R19.5 Other fecal abnormalities; Z79.899 Other long term (current) drug therapy
CPT/HCPCS: 36415; 80053; 85025; 86140

== ENCOUNTER 2023-03-21 13:49 | Outpatient (CLI) | payer MEDICARE, MEDICAID, SELFPAY ==
[2023-03-26 19:26] LABS: Calprotectin, Stool 114 mcg/g
== END 2023-03-21 13:50 | disposition home or self-care (01) ==
LOC: CHSLAB 13:52
PROVIDERS: PCP Family Medicine; Visit Provider Internal Medicine Gastroenterology
DX: K50.819 Crohn's disease of both small and large intestine with unspecified complications (principal); R19.5 Other fecal abnormalities
CPT/HCPCS: 83993

== ENCOUNTER 2023-04-06 15:58 | Outpatient (CLI) | payer MEDICARE, MEDICAID, SELFPAY ==
[2023-04-13 18:27] LABS: Calprotectin, Stool 631 mcg/g
== END 2023-04-06 15:59 | disposition home or self-care (01) ==
LOC: CHSLAB 16:00
PROVIDERS: PCP Family Medicine; Visit Provider Internal Medicine Gastroenterology
DX: K50.819 Crohn's disease of both small and large intestine with unspecified complications (principal); R19.5 Other fecal abnormalities
CPT/HCPCS: 83993

== ENCOUNTER 2023-06-07 13:44 | Outpatient (CLI) | payer MEDICARE, MEDICAID, SELFPAY ==
[2023-06-07 14:06] LABS: Creatinine Urine 136.46 mg/dL (40-278); MALB Creatinine Ratio 9.5 mg/g (0-30); Microalbumin Urine Random < 13.0 mg/L
[2023-06-07 14:25] LABS: Anion Gap 8 mmol/L (8-16); Blood Urea Nitrogen 17 mg/dL (7-18); Calcium 8.7 mg/dL (8.5-10.1); Carbon Dioxide 31 mmol/L (21-32); Chloride 100 mmol/L (98-108); Estimated Glomerular Filt Rate > 60; Glucose 137 mg/dL (70-99); Osmolality Calculated 291 mOsm/kg (285-295); Potassium 3.4 mmol/L (3.5-5.1); Sodium 139 mmol/L (136-145)
== END 2023-06-07 13:45 | disposition home or self-care (01) ==
LOC: CHSLAB 13:47
PROVIDERS: PCP Family Medicine; Visit Provider Family Medicine
DX: I10 Essential (primary) hypertension (principal)
CPT/HCPCS: 36415; 80048; 82043

== ENCOUNTER 2023-06-23 10:07 | Outpatient (CLI) | payer MEDICARE, MEDICAID, SELFPAY ==
[2023-06-23 10:58] LABS: Anion Gap 10 mmol/L (8-16); Blood Urea Nitrogen 19 mg/dL (7-18); Calcium 8.7 mg/dL (8.5-10.1); Carbon Dioxide 31 mmol/L (21-32); Chloride 101 mmol/L (98-108); Estimated Glomerular Filt Rate > 60; Glucose 89 mg/dL (70-99); Osmolality Calculated 295 mOsm/kg (285-295); Potassium 3.7 mmol/L (3.5-5.1); Sodium 142 mmol/L (136-145)
== END 2023-06-23 10:08 | disposition home or self-care (01) ==
LOC: CHSLAB 10:12
PROVIDERS: PCP Family Medicine; Visit Provider Family Medicine
DX: I10 Essential (primary) hypertension (principal)
CPT/HCPCS: 36415; 80048

== ENCOUNTER 2023-08-08 11:59 | Outpatient (CLI) | payer MEDICARE, MEDICAID, SELFPAY ==
[2023-08-08 12:21] LABS: Basophils Absolute Auto 0.05 K/mm3 (0.00-0.10); Basophils Percent Auto 0.5 % (0.0-1.0); Eosinophils Absolute Auto 0.12 K/mm3 (0.02-0.50); Eosinophils Percent Auto 1.3 % (1.0-6.0); Hematocrit 39.2 % (35.0-42.0); Hemoglobin 13.2 g/dL (11.7-13.8); Immature Granulocyte Absolute 0.02 K/mm3 (0.00-0.00); Immature Granulocyte Percent A 0.2 % (0.0-0.0); Lymphocytes Percent Auto 39.1 % (18.0-42.0); Mean Corpuscular HGB Conc 33.7 g/dL (32-36); Mean Corpuscular Hemoglobin 29.9 pg (27.0-31.0); Mean Corpuscular Volume 88.7 fL (78.0-102.0); Mean Platelet Volume 8.7 fl (9.2-11.8); Monocytes Absolute Auto 0.61 K/mm3 (0.10-0.90); Monocytes Percent Auto 6.6 % (2.0-11.0); Neutrophils Absolute Auto 4.81 K/mm3 (1.70-7.20); Neutrophils Percent Auto 52.3 % (50.0-70.0); Platelet Count Result 234 K/mm3 (150-420); Red Blood Count 4.42 M/mm3 (4.20-5.40); Red Cell Distribution Width 12.8 % (11.6-14.4); White Blood Count 9.2 K/mm3 (4.8-10.8)
[2023-08-08 13:10] LABS: Alanine Aminotransferase 26 U/L (14-59); Albumin Level 3.8 g/dL (3.4-5.0); Alkaline Phosphatase 69 U/L (46-116); Anion Gap 7 mmol/L (4-12); Aspartate Amino Transferase 18 U/L (15-37); Bilirubin,Total 0.4 mg/dL (0.00-1.00); Blood Urea Nitrogen 14 mg/dL (7-18); Calcium 8.8 mg/dL (8.5-10.1); Carbon Dioxide 33 mmol/L (21-32); Chloride 103 mmol/L (98-108); Estimated Glomerular Filt Rate 57; Glucose 83 mg/dL (70-99); Osmolality Calculated 295 mOsm/kg (285-295); Potassium 3.6 mmol/L (3.5-5.1); Sodium 143 mmol/L (136-145); Total Protein 7.2 g/dL (6.4-8.2)
[2023-08-08 13:28] LABS: CRP < 0.5 mg/dL (0.0-0.9)
== END 2023-08-08 12:00 | disposition home or self-care (01) ==
LOC: CHSLAB 12:01
PROVIDERS: PCP Family Medicine; Visit Provider Internal Medicine Gastroenterology
DX: K50.013 Crohn's disease of small intestine with fistula (principal); Z79.899 Other long term (current) drug therapy
CPT/HCPCS: 36415; 80053; 85025; 86140

== ENCOUNTER 2023-12-25 11:39 | Outpatient (CLI) | payer MEDICARE, MEDICAID, SELFPAY ==
[2023-12-25 11:58] LABS: Basophils Absolute Auto 0.05 K/mm3 (0.00-0.10); Basophils Percent Auto 0.7 % (0.0-1.0); Eosinophils Absolute Auto 0.11 K/mm3 (0.02-0.50); Eosinophils Percent Auto 1.5 % (1.0-6.0); Hematocrit 38.1 % (35.0-42.0); Hemoglobin 13.3 g/dL (11.7-13.8); Immature Granulocyte Absolute 0.02 K/mm3 (0.00-0.00); Immature Granulocyte Percent A 0.3 % (0.0-0.0); Lymphocytes Absolute Auto 3.25 K/mm3 (1.10-4.50); Lymphocytes Percent Auto 43.3 % (18.0-42.0); Mean Corpuscular HGB Conc 34.9 g/dL (32-36); Mean Corpuscular Hemoglobin 31.2 pg (27.0-31.0); Mean Corpuscular Volume 89.4 fL (78.0-102.0); Mean Platelet Volume 8.9 fl (9.2-11.8); Monocytes Percent Auto 5.3 % (2.0-11.0); Neutrophils Absolute Auto 3.68 K/mm3 (1.70-7.20); Neutrophils Percent Auto 48.9 % (50.0-70.0); Platelet Count Result 203 K/mm3 (150-420); Red Blood Count 4.26 M/mm3 (4.20-5.40); Red Cell Distribution Width 12.4 % (11.6-14.4); White Blood Count 7.5 K/mm3 (4.8-10.8)
[2023-12-25 12:03] LABS: Add Urine Microscopic? YES; Appearance Urine Clear (Clear); Bilirubin Urine Negative (Negative); Blood Urine Negative (Negative); Color Urine Light Yellow (Yellow); Glucose Urine UA Negative (Negative); Ketones Urine Negative (Negative); Leukocyte Esterase Ur Trace (Negative); Nitrate Urine Negative (Negative); Protein Urine Negative (Negative); RBC Urine None seen /hpf (0-2); Squamous Epithelial Cell Urine Rare /hpf (Few); Urobilinogen Urine 0.2 mg/dL (0.2-1.0); WBC Urine 0-3 /hpf (0-3); pH Urine 6.5 (5.0-8.0)
[2023-12-25 12:04] LABS: Bacteria Urine Trace /hpf; Creatinine Urine 109.86 mg/dL (40-278); MALB Creatinine Ratio 11.8 mg/g (0-30); Microalbumin Urine Random < 13.0 mg/L
[2023-12-25 12:55] LABS: Alanine Aminotransferase 34 U/L (14-59); Albumin Level 3.7 g/dL (3.4-5.0); Alkaline Phosphatase 80 U/L (46-116); Anion Gap 7 mmol/L (4-12); Aspartate Amino Transferase 20 U/L (15-37); Bilirubin,Total 0.5 mg/dL (0.00-1.00); Blood Urea Nitrogen 13 mg/dL (7-18); Calcium 8.5 mg/dL (8.5-10.1); Carbon Dioxide 32 mmol/L (21-32); Chloride 103 mmol/L (98-108); Cholesterol 252 mg/dL (0-200); Estimated Glomerular Filt Rate 54; Glucose 93 mg/dL (70-99); HDL Direct 79 mg/dL (40-60); LDL Cholesterol Calculated 156 mg/dL (<130); Osmolality Calculated 294 mOsm/kg (285-295); Potassium 3.9 mmol/L (3.5-5.1); Sodium 142 mmol/L (136-145); Thyroid Stimulating Hormone 1.67 uIU/mL (0.36-3.74); Total Protein 7.1 g/dL (6.4-8.2); Triglycerides 85 mg/dL (0-150)
== END 2023-12-25 11:40 | disposition home or self-care (01) ==
LOC: CHSLAB 11:41
PROVIDERS: PCP Family Medicine; Visit Provider Family Medicine
DX: I10 Essential (primary) hypertension (principal); M81.0 Age-related osteoporosis without current pathological fracture
CPT/HCPCS: 36415; 80053; 80061; 81001; 82043; 84443; 85025

== ENCOUNTER 2024-02-23 12:45 | Outpatient (CLI) | payer MEDICARE, SELFPAY ==
[2024-02-23 12:58] LABS: Basophils Absolute Auto 0.07 K/mm3 (0.00-0.10); Eosinophils Percent Auto 1.5 % (1.0-6.0); Hematocrit 36.2 % (35.0-42.0); Hemoglobin 12.8 g/dL (11.7-13.8); Immature Granulocyte Absolute 0.01 K/mm3 (0.00-0.00); Immature Granulocyte Percent A 0.1 % (0.0-0.0); Lymphocytes Absolute Auto 3.08 K/mm3 (1.10-4.50); Mean Corpuscular HGB Conc 35.4 g/dL (32-36); Mean Corpuscular Hemoglobin 31.1 pg (27.0-31.0); Mean Corpuscular Volume 88.1 fL (78.0-102.0); Mean Platelet Volume 9.1 fl (9.2-11.8); Monocytes Absolute Auto 0.46 K/mm3 (0.10-0.90); Monocytes Percent Auto 6.7 % (2.0-11.0); Neutrophils Absolute Auto 3.13 K/mm3 (1.70-7.20); Neutrophils Percent Auto 45.7 % (50.0-70.0); Platelet Count Result 216 K/mm3 (150-420); Red Blood Count 4.11 M/mm3 (4.20-5.40); Red Cell Distribution Width 12.3 % (11.6-14.4); White Blood Count 6.9 K/mm3 (4.8-10.8)
[2024-02-23 13:26] LABS: Alanine Aminotransferase 52 U/L (14-59); Albumin Level 3.9 g/dL (3.4-5.0); Alkaline Phosphatase 86 U/L (46-116); Anion Gap 9 mmol/L (4-12); Aspartate Amino Transferase 33 U/L (15-37); Bilirubin,Total 0.5 mg/dL (0.00-1.00); Blood Urea Nitrogen 15 mg/dL (7-18); Carbon Dioxide 30 mmol/L (21-32); Chloride 100 mmol/L (98-108); Estimated Glomerular Filt Rate 53; Glucose 100 mg/dL (70-99); Osmolality Calculated 288 mOsm/kg (285-295); Potassium 3.9 mmol/L (3.5-5.1); Sodium 139 mmol/L (136-145); Total Protein 7.2 g/dL (6.4-8.2)
[2024-02-23 13:28] LABS: CRP < 0.5 mg/dL (0.0-0.9)
== END 2024-02-23 12:46 | disposition home or self-care (01) ==
LOC: CHSLAB 12:47
PROVIDERS: PCP Family Medicine; Visit Provider Internal Medicine Gastroenterology
DX: K50.013 Crohn's disease of small intestine with fistula (principal); Z79.899 Other long term (current) drug therapy
CPT/HCPCS: 36415; 80053; 85025; 86140

== ENCOUNTER 2024-03-13 13:42 | Outpatient (CLI) | payer MEDICARE, SELFPAY ==
--- NOTE | ~2024-03-13 | DEXA_ITS ---
Bone Density Report Name: LUCIANA MOJICA Age: 68 Sex: Female Ethnicity: White Date of : 1955 Indication: postmenopausal osteoporosis; monitoring treatment; Referring Provider: Anselmo Avalos Study: Bone densitometry was performed. Exam Date: March 13, 2024 Accession number: [id number] Bone Density: Region BMD T-score Z-score Classification AP Spine(L1-L4) 0.780 -2.4 -0.6 Osteopenia Femoral Neck (Left) 0.560 -2.6 -1.0 Osteoporosis Total Hip (Left) 0.647 -2.4 -1.1 Osteopenia Femoral Neck (Right) 0.595 -2.3 -0.7 Osteopenia Total Hip (Right) 0.698 -2.0 -0.7 Osteopenia Femoral Neck Mean 0.578 -2.4 -0.8 Osteopenia Total Hip Mean 0.673 -2.2 -0.9 Osteopenia World Health Organization criteria for BMD impression classify patients as: Normal (T-score at or above -1.0), Osteopenia (T-score between -1.0 and -2.5), or Osteoporosis (T-score at or below -2.5). 10-year Fracture Risk: FRAX not reported because: Some T-score for Spine Total or Hip Total or Femoral Neck at or below -2.5 Treated for osteoporosis Previous Exams: Region Exam Age BMD T-score BMD Change BMD Change Date g/cm2 vs Baseline vs Previous AP Spine (L1-L4) 03/13/2024 68 0.780 -2.4 0.059 (8.2%)* 0.059 (8.2%)* 03/10/2022 66 0.721 -3.0 Total Hip(Left) 03/13/2024 68 0.647 -2.4 0.181 (38.8%)* 0.181 (38.8%)* 03/10/2022 66 0.466 -3.9 Total Hip(Right) 03/13/2024 68 0.698 -2.0 0.078 (12.6%)* 0.078 (12.6%)* 03/10/2022 66 0.620 -2.6 *Denotes significance at 95% confidence level, LSC for AP Spine = 0.022 g/cm2, LSC for Total Hip = 0.027 g/cm2 Clinical Information Provided by Patient: Is being treated for osteoporosis Has used the following medications: Fosamax (i.e. alendronate), Vitamin D Patient maximum height was 66 Menopause Age: 50 No regular weight bearing exercise Does not regularly consume dairy products Drinks caffeinated beverages Onset of menses at age 16 Number of children 6 Impression: The patient has osteoporosis, based on the Left Femoral Neck T-score. No significant bone loss was observed. Discussion: PATIENT UNDER TREATMENT WITH NO SIGNIFICANT BMD LOSS SINCE LAST EXAM. In an untreated patient, BMD typically declines with age. A lack of decline or gain is usually a sign that treatment is efficacious and fracture risk is reduced. It is important to ask patients whether they are taking their medications and to encourage continued and appropriate compliance with their osteoporosis therapies to reduce fracture risk. It is also important to review their risk factors and encourage appropriate calcium and vitamin D intakes, exercise, fall prevention and other lifestyle measures. Follow-Up: Consider a repeat BMD and Vertebral Fracture Assessment (VFA) exam in 2 years or sooner if medically necessary, to reassess this patient's status. Reported by: WARD on 03/13/2024 2:09:00 PM. Reviewed, dictated and finalized at location A.
== END 2024-03-13 13:43 | disposition home or self-care (01) ==
PROVIDERS: PCP Family Medicine; Visit Provider Family Medicine
DX: Z78.0 Asymptomatic menopausal state (principal); M85.89 Other specified disorders of bone density and structure, multiple sites; M81.0 Age-related osteoporosis without current pathological fracture
CPT/HCPCS: 77080

== ENCOUNTER 2024-07-25 10:15 | Outpatient (CLI) | payer MEDICARE, MEDICAID, SELFPAY ==
[2024-07-25 10:30] LABS: Basophils Absolute Auto 0.04 K/mm3 (0.00-0.10); Basophils Percent Auto 0.5 % (0.0-1.0); Eosinophils Absolute Auto 0.15 K/mm3 (0.02-0.50); Hematocrit 37.9 % (35.0-42.0); Hemoglobin 12.6 g/dL (11.7-13.8); Immature Granulocyte Absolute 0.01 K/mm3 (0.00-0.00); Immature Granulocyte Percent A 0.1 % (0.0-0.0); Lymphocytes Absolute Auto 2.75 K/mm3 (1.10-4.50); Lymphocytes Percent Auto 37.5 % (18.0-42.0); Mean Corpuscular HGB Conc 33.2 g/dL (32-36); Mean Corpuscular Hemoglobin 29.6 pg (27.0-31.0); Mean Platelet Volume 9.2 fl (9.2-11.8); Monocytes Absolute Auto 0.36 K/mm3 (0.10-0.90); Monocytes Percent Auto 4.9 % (2.0-11.0); Neutrophils Absolute Auto 4.03 K/mm3 (1.70-7.20); Platelet Count Result 212 K/mm3 (150-420); Red Blood Count 4.26 M/mm3 (4.20-5.40); White Blood Count 7.3 K/mm3 (4.8-10.8)
[2024-07-25 10:56] LABS: Alanine Aminotransferase 32 U/L (14-59); Albumin Level 3.8 g/dL (3.4-5.0); Alkaline Phosphatase 86 U/L (46-116); Anion Gap 8 mmol/L (4-12); Aspartate Amino Transferase 20 U/L (15-37); Bilirubin,Total 0.4 mg/dL (0.00-1.00); Blood Urea Nitrogen 17 mg/dL (7-18); Calcium 8.9 mg/dL (8.5-10.1); Carbon Dioxide 31 mmol/L (21-32); Chloride 105 mmol/L (98-108); Cholesterol 238 mg/dL (0-200); Estimated Glomerular Filt Rate 50; Glucose 93 mg/dL (70-99); HDL Direct 76 mg/dL (40-60); LDL Cholesterol Calculated 146 mg/dL (<130); Osmolality Calculated 299 mOsm/kg (285-295); Sodium 144 mmol/L (136-145); Total Protein 7.5 g/dL (6.4-8.2); Triglycerides 80 mg/dL (0-150)
--- OUTSIDE RECORDS SUMMARY | 2024-07-25 11:31 | XMS_ITS | Clinical Summary ---
Author Organization [facility] Address [address] [place] [address] Care Team Providers Care Routing Equipment Tender Name Role Phone Anselmo Avalos MD Primary Care Provide r Allergies No known active allergies Medications alendronate (FOSAMAX) 70 mg tablet TAKE 1 TABLET BY MOUTH ONCE WEEKLY IN THE MORNING. AT LEAST 30 MIN BEFORE FOOD, DRINK, OR MEDS 3 Active losartan-hydro CHLOROthiazide (HYZAAR) 50-12.5 mg per tablet Take 1 tablet by mouth daily 3 Active amLODIPine (NORVASC) 10 mg tablet Take 1 tablet (10 mg total) by mouth daily 3 Active hydrOXYzine (ATARAX) 25 mg tablet TAKE 1 TABLET BY ORAL ROUTE UP TO 2 TIMES PER DAY NEEDED FOR SEVERE ANXIETY 4 Active cholecalcifero l (VITAMIN D-3) 2000 unit tablet 2400 international units Active omega-3 fatty acids-fish oil 300-1,000 mg capsule Take 2 capsules (2 g total) by mouth daily Active UNABLE TO FIND Med Name: VITREOUS health eye floaters formula 1 daily Active LORazepam (ATIVAN) 0.5 mg tabletIndicati ons:claustroph obia Take 1-2 pills 30-60 minutes prior to MRI 2 tablet 4 Active Stelara injection INJECT 1 SYRINGE SUBCUTANEOUSLY EVERY 4 WEEKS 1 mL 2 5 Active Active Problems Problem Noted Date Diagnosed Date High risk medications (not anticoagulants) long- term use 09/08/2021 Crohn's disease of small intestine with fistula 03/03/2021 Overview (11/14/2023): Year of diagnosis: 2020. Year symptoms began: 2020. Phenotype: Penetrating (B3) without perianal disease. Distribution: ileal (L1) without upper GI disease (L4). Extraintestinal manifestations: none. Complications: fistulas, hx adenomatous polyps Prior treatments: PDN, started Humira 04/15/21, level 14.5 06/09/21 Current treatment: started Stelara 02/10/22 q8 weeks (due to good humira levels and high FC), escalated to q4wks 06/2023 FC 03/04/21 677, 12/02/21 643, 12/02/22 252, 03/21/23 114, 04/06/23 631 Prior surgeries: none. Endoscopies: Colonscopy 01/29/21 .Stricture in the terminal ileum. Biopsied. The most likley related to stricturing Crohn's disease. - One 8 mm polyp in the sigmoid colon, removed with a cold snare. Resected and retrieved. - Normal mucosa in the entire examined colon. - The distal rectum and anal verge are normal on retroflexion view. - Biopsies were obtained from right and left colon PATH: Small intestine, terminal ileum, biopsy: - Ileal mucosa with active chronic ileitis (villitis, and crypt distortion) (see comment). B. Colon, right, biopsy: - Colonic mucosa with active colitis with cryptitis. C. Colon, left, biopsy: - Colonic mucosa with no significant abnormality. D. Colon, Sigmoid, polyp, polypectomy: - Fragments of tubular adenoma. Imaging: MRE 09/2023 IMPRESSION: Positive treatment response with decreased length of active inflammation involving the distal ileum and interval resolution of short segment small bowel inflammation in the left lower quadrant. No evidence of penetrating disease. MRE 04/2023 IMPRESSION: 1. Stable to slight interval improvement in active inflammatory bowel disease at the distal ileum with decreased upstream dilatation. A 2nd site of active inflammatory bowel disease is present in the left lower quadrant and may be new from the prior study. 2. Interval resolution of tethering of the distal ileum to the sigmoid colon. MRE 10/2021 IMPRESSION: 1. As compared to the CT dated 03/08/2021, interval decrease in inflammatory sequela secondary to inflammatory terminal ileitis. However, persistent focal bowel thickening with associated mucosal hyperenhancement is seen at the mid to distal terminal ileum and at the proximal ileum, consistent with active inflammation. 2. Probable fistula between sigmoid and terminal ileum, as seen on prior imaging. CT 01/27/21 Terminal ileitis with adjacent reactive appendicitis and probable fistulas between the terminal ileum and appendix and the terminal ileum and colon. These findings are in keeping with inflammatory bowel disease. IBD HEALTH MAINTENANCE HBV vaccination status: Non Immune Assessment & Plan (05/22/2024 10:42 AM EMBEDDED SYSTEMS SOFTWARE ENGINEER): CD doing well. On stelara q 4 weeks. FS CD. Will continue same and f/u in 6 mo. Assessment & Plan (11/15/2023 8:59 AM CDT): CD doing well. Will continue same and f/u in 6 mo. Assessment & Plan (04/05/2023 11:32 AM EMBEDDED SYSTEMS SOFTWARE ENGINEER): CD with abdominal pain and chills. Pain this week and 2 weeks ago lasting 24 hours. Known ileal disease 8 cm on last MR. Had chills last 36 hours. Check for MRE Covid test FC and f/up in 4 weeks. She is to let us know the results of the covid test. Assessment & Plan (11/30/2022 11:08 AM CDT): CD doing well. Will wait and watch and f/up in March. Check FC which has been elevated in the past. If elevated move stelara to q 4. Vs treat to target colon vs imaging. Assessment & Plan (04/27/2022 10:10 AM EMBEDDED SYSTEMS SOFTWARE ENGINEER): CD early into Stelara. Will check FC and f/up in 3-4 months. Hopefully the fc has dropped.. 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 Will wean down by 5 mg/week. Check the humira level and see if therapeutic and no ab's. If humira level is low then will go to q1 week. Will f/up in 3 months. As a result of the c/o alopecia will check Zn levels. Skin cancer 01/28/2021 Assessment & Plan (01/28/2021 12:55 AM CDT): Recent diagnosis status post resection by plastics in her left upper back. Patient unaware of her pathology diagnosis. Reports that she was told that she did not need follow-up for this. Ileitis 01/27/2021 Assessment & Plan (01/28/2021 12:57 AM CDT): Ongoing abdominal pain with imaging findings of inflammation at the terminal ileum with possible appendiceal/colonic fistulous connection. Seen by colorectal surgery in the ER with recommendations for admission to Medicine for GI evaluation. Prior colonoscopy with inflammation in this area although unknown if biopsy were obtained. Diagnosis includes infectious ileitis versus IBD specially given chronicity; malignancy involving the GI tract also possible specially given night sweats, weight loss and subjective fevers. -will obtain stool studies, ESR/CRP, LDH, HIV,gliadin, transglutaminase and endomysial antibodies. -GI consult in the morning -will attempt to obtain her colonoscopy records in the morning -pain control as needed with acetaminophen and backup oxycodone; will try to minimize NSAIDs -IV fluids, anti emetics p.r.n. Anemia 01/27/2021 Assessment & Plan (01/27/2021 11:22 PM CDT): Normocytic anemia with mild elevation and platelet count which could be reactive. -check iron studies, B12 and folate. Monitor. Encounters Date Type Department Care Team Description 05/22/2024 10:30 AM EMBEDDED SYSTEMS SOFTWARE ENGINEER Telemedicine [facility] Gastroenterology [address] [place] [address] Medical Office [address] [place] [address] Bora Bains MD Crohn's disease of both small and large intestine with complication (HCC) (Primary Dx); High risk medications (not anticoagulants) long-term use from Last 3 Months Surgical History Surgery Date Site/Laterality Comments SKIN CANCER EXCISION Medical History Medical History Date Comments Skin cancer Family History Medical History Relation Name Comments No Known Problems Father No Known Problems Mother Relation Name Status Comments Father Mother Social History Tobacco Use Types Packs/Day Years Used Date Smoking Tobacco: Former Cigarettes 0.5 25 0 09/03/1997 - 09/03/2022 Passive Smoke Exposure: Past Smokeless Tobacco: Never Tobacco Cessation:Counseling Given: Not Answered Alcohol Use Standard Drinks/Week Comments Not Currently 0 (1 standard drink = 0.6 oz pur e alcohol) AUDIT-C Answer Date Recorded Q1: How often do you have a drink containing alcohol? Never 11/15/2023 Q2: How many drinks containi ng alcohol do you have on a typical day when you are drinking? Patient does not drink Q3: How often do you have si x or more drinks on one occasion? Never 11/15/2023 Comments No Sex and Gender Information Value Date Recorded Sex Assigned at Not on file Legal Sex Female 9:06 AM CDT Gender Identity Not on file Sexual Orientation Not on file Obstetrics History Last Filed Vital Signs Vital Sign Reading Time Taken Comments Blood Pressure 160/82 11/15/2023 8:27 AM CDT Pulse 103 11/15/2023 8:27 AM CDT Temperature 36.7 C (98 F) 11/15/2023 8:27 AM CDT Respiratory Rate 18 02/10/2022 2:14 PM EMBEDDED SYSTEMS SOFTWARE ENGINEER Oxygen Saturation 98% 11/15/2023 8:27 AM CDT Inhaled Oxygen Concentration - - Weight 65.8 kg (145 lb) 11/15/2023 8:27 AM CDT Height 167.6 cm (5' 6 ) 11/15/2023 8:27 AM CDT Body Mass Index 23.4 11/15/2023 8:27 AM CDT Plan of Treatment Health Maintenance Due Date Last Done Comments Breast Cancer Screening-Mammogram 1955 Depression Screening 1955 Hepatitis C Screening 1955 Osteoporosis Screening-Bone Density Scan 1955 DTaP/Tdap/Td Vaccine (1 - Tdap) 1968 Hepatitis B Screening 08/20/1975 Pneumococcal vaccine 65+ (1 of 1 - PCV) 08/20/2007 Zoster Vaccine (1 of 2) 08/20/2007 Fall Risk Assessment 01/29/2022 01/29/2021 Well Visit 65+ 2022 Influenza Vaccine (Season Ended) 2024 02/07/20 23 Colon Cancer Screening-Colonoscopy 01/29/20312020 Procedures Procedure Name Priority Date/Time Associated Diagnosis Comments COLONOSCOPY 01/29/2021 11:56 AM CDT from Last 3 Months or Most Recently Relevant to Health Maintenance Results * COLONOSCOPY (01/29/2021 11:56 AM CDT) Anatomical Region Laterality Modality Other Narrative Procedure Note Megha Grover MD - 01/29/2021 11:56 AM CDT [facility] Patient Name: Anastasiia French Procedure Date: 01/29/2021 11:56AM Date of : 1955 Admit Type: Inpatient Age: 65 Gender: Female Attending MD: Megha Grover M.D. Room: [facility] OR POD 5 ROOM 224 Note Status: Finalized Procedure: Colonoscopy Indications: Abnormal CT of the GI tract, Suspected Crohn'sdisease of the small bowel Referring MD: Kate Monroe M.D. Providers: Megha Grover M.D., Tamy Mcdonnell M.D. Medicines: Monitored Anesthesia Care Complications: No immediate complications. Estimated Blood Loss: Estimated blood loss was minimal. Procedure: Pre-Anesthesia Assessment: - Prior to the procedure, a History and Physicalwas performed, and patient medications, allergies and sensitivities were reviewed. The patient'stolerance of previous anesthesia was reviewed. - Immediately prior to administration ofmedications, the patient was re-assessed for adequacy to receive sedatives. - The risks and benefits of the procedure and the sedation options and risks were discussed with the patient. All questions were answered and informed consent was obtained. The benefits, risks and alternatives of theprocedure and sedation were discussed and informed consentwas obtained. All questions were answered. Please referto the signed informed consent document in the medical record. The scope was passed under direct vision.The Colonoscope was introduced through the anus and advanced to the 5 cm into the ileum. Thecolonoscopy was extremely difficult due to restricted mobilityof the colon. Successful completion of the procedurewas aided by using manual pressure. The quality of the bowel preparation was evaluated using the BBPS([place] Bowel Preparation Scale) with scores of: RightColon = 3, Transverse Colon = 3 and Left Colon = 3 (entire mucosa seen well with no residual staining, small fragments of stool or opaque liquid). The totalBBPS score equals 9. The quality of the bowelpreparation was excellent. The bowel preparation used wasMoviPrep via split dose instruction. Findings: The perianal and digital rectal examinations were normal. The terminal ileum contained a benign-appearing, intrinsic severe stenosis measuring 5 mm (inner diameter) that was non-traversed. The mucosa was inflammed and the TI was very difficult to intubate, and I could not get the forcepts inside the stricture to biopsy it.Biopsies were taken with a cold forceps terminal ileum distal to the stricture for histology. A 8 mm polyp was found in the sigmoid colon. The polyp was sessile.The polyp was removed with a cold snare. Resection and retrieval were complete. Normal mucosa was found in the entire colon. Biopsies were obtainedfrom right and left colon with cold forceps for histology. The retroflexed view of the distal rectum and anal verge was normaland showed no anal or rectal abnormalities. Impression: - Stricture in the terminal ileum. Biopsied. Themost likley related to stricturing Crohn's disease. - One 8 mm polyp in the sigmoid colon, removed witha cold snare. Resected and retrieved. - Normal mucosa in the entire examined colon. - The distal rectum and anal verge are normal on retroflexion view. - Biopsies were obtained from right and leftcolon. Recommendation: - Await pathology results. - Use Entocort EC (budesonide) 9 mg PO one time per day daily. - Schedule appointment with IBDgastroneterologist. - Transfer patient to another hospital. - [facility]. Electronically signed by Megha Grover MD Megha Grover M.D. 01/29/2021 1:03:29 PM Number of Addenda: 0 Note Initiated On: 01/29/2021 11:56 AM Recognized by the [place] Society for Gastrointestinal Endoscopy for promoting quality in endoscopy Megha Grover MD ENDOSCOPY PROCEDURES Final Resu lt from Last 3 Months or Most Recently Relevant to Health Maintenance Insurance [facility] MEDICARE ADVANTAGE [facility] Address: [facility] [address] [place] [address] [facility] MEDICARE ADVANTAGE Advance Directives For more information, please contact: [phone] * Full Code (Latest Code Status on File) Date Activated Date Inactivated Comments 01/27/2021 11:21 PM 01/29/2021 11:16 PM Care Teams Routing Equipment Tender Relationship Specialty Start Date End Date Anselmo Avalos MD [address] [place] [address] PCP - General Family Medicine 02/02/21
--- OUTSIDE RECORDS SUMMARY | 2024-07-25 11:31 | XMS_ITS | Referral Summary ---
Author Organization [facility] Address [address] [place] [address] Care Team Providers Care Human Resources Support Specialist Name Role Phone Anselmo Avalos MD Primary Care Provide r Encounters Date Type Department Care Team Description 05/22/2024 10:30 AM BUSINESS DEVELOPMENT DIRECTOR Telemedicine [facility] Gastroenterology [address] [place] [address] Medical Office Building [address] [place] [address] Bora Bains MD Crohn's disease of both small and large intestine with complication (HCC) (Primary Dx); High risk medications (not anticoagulants) long-term use from Last 3 Months Allergies No known active allergies Medications alendronate [...] daily Active UNABLE TO FIND Med Name: [facility] health eye floaters formula 1 daily Active [...] Immune Assessment & Plan (05/22/2024 10:42 AM BUSINESS DEVELOPMENT DIRECTOR): CD doing well. On stelara q 4 weeks. FS CD. Will continue same and f/u in 6 mo. Assessment & Plan (11/15/2023 8:59 AM CDT): CD doing well. Will continue same and f/u in 6 mo. Assessment & Plan (04/05/2023 11:32 AM BUSINESS DEVELOPMENT DIRECTOR): CD with abdominal pain and chills. Pain [...] imaging. Assessment & Plan (04/27/2022 10:10 AM BUSINESS DEVELOPMENT DIRECTOR): CD early into Stelara. Will check FC and f/up in 3-4 months. Hopefully the fc has dropped.. Assessment & Plan (06/09/2021 9:18 AM BUSINESS DEVELOPMENT DIRECTOR): Patient with penetrating CD IC still on [...] -check iron studies, B12 and folate. Monitor. Social History Tobacco Use Types Packs/Day Years [...] on file Sexual Orientation Not on file Last Filed Vital Signs Vital Sign Reading Time Taken Comments Blood Pressure 160/82 11/15/2023 8:27 AM CDT Pulse 103 11/15/2023 8:27 AM CDT Temperature 36.7 C (98 F) 11/15/2023 8:27 AM CDT Respiratory Rate 18 02/10/2022 2:14 PM BUSINESS DEVELOPMENT DIRECTOR Oxygen Saturation 98% 11/15/2023 8:27 AM CDT Inhaled Oxygen Concentration - - Weight 65.8 kg (145 lb) 11/15/2023 8:27 AM CDT Height 167.6 cm (5' 6 ) 11/15/2023 8:27 AM CDT Body Mass Index 23.4 11/15/2023 8:27 AM CDT Plan of Treatment Not on file Procedures Procedure Name Priority Date/Time Associated Diagnosis [...] Female Attending MD: Megha Grover M.D. Room: [facility] OR POD 5 ROOM 224 Note Status: Finalized Procedure: Colonoscopy Indications: Abnormal CT of the GI tract, Suspected Crohn'sdisease of the small bowel Referring MD: Kate Monroe M.D. Providers: Megah Grover M.D., Tamy Mcdonnell M.D. Medicines: Monitored [...] the bowel preparation was evaluated using the BBPS([place] Bowel Preparation Scale) with scores of: RightColon [...] On: 01/29/2021 11:56 AM Recognized by the [place] [employer] Gastrointestinal Endoscopy for promoting quality in endoscopy Megha Grover MD ENDOSCOPY PROCEDURES Final Resu lt from Last 3 Months or Most Recently Relevant to Health Maintenance Insurance [facility] MEDIC[facility] Address: [address] [address] [place] [address] UHC MEDICARE ADVANTAGE [facility] MEDIC[facility] Address: [address] [address] [place] [address] Advance Directives For more information, please contact: [phone] * Full Code (Latest Code Status on File) Date Activated Date Inactivated Comments 01/27/2021 11:21 PM 01/29/2021 11:16 PM Care Teams Human Resources Support Specialist Relationship Specialty Start Date End Date Anselmo Avalos MD [address] [place] [address] PCP - General Family Medicine 02/02/21
--- OUTSIDE RECORDS SUMMARY | 2024-07-25 11:31 | XMS_ITS | CONTINUITY OF CARE DOCUMENT ---
Author Name sharlene su Address Unknown Organization [facility] Address [address] [place] [address] Phone [phone] Care Team Providers Care Press Operator [employer] Name Role Phone sharlene su Unavailable Unavailable
--- OUTSIDE RECORDS SUMMARY | 2024-07-25 11:31 | XMS_ITS ---
Author Organization [facility] Address [address] [place] [address] Care Team Providers Care Vet Assistant Name Role Phone Anselmo Avalos MD Primary Care Provide r Active Problems Problem Noted Date Diagnosed Date [...] Immune Assessment & Plan (05/22/2024 10:42 AM ASSOCIATE FACULTY): CD doing well. On stelara q 4 weeks. FS CD. Will continue same and f/u in 6 mo. Assessment & Plan (11/15/2023 8:59 AM CDT): CD doing well. Will continue same and f/u in 6 mo. Assessment & Plan (04/05/2023 11:32 AM ASSOCIATE FACULTY): CD with abdominal pain and chills. Pain [...] imaging. Assessment & Plan (04/27/2022 10:10 AM ASSOCIATE FACULTY): CD early into Stelara. Will check FC and f/up in 3-4 months. Hopefully the fc has dropped.. Assessment & Plan (06/09/2021 9:18 AM ASSOCIATE FACULTY): Patient with penetrating CD IC still on [...] -check iron studies, B12 and folate. Monitor. Current Treatment and Therapy Plans No current plan information found. Other Current Plans ustekinumab (STELARA) IVPB* Plan Start Date:02/10/2022 Plan Provider:Bora Bains MD Linked Problems Crohn's disease of small int estine with fistula (HCC) Treatment Medications ustekinumab (STELARA) Past Treatment and Therapy Plans No past plan information found. Lifetime Dose Tracking * Chemical Lifetime Dose Automatic Entry Manual Entr y DLP 515 mGycm 515 mGycm 0 mGycm
== END 2024-07-25 10:16 | disposition home or self-care (01) ==
PROVIDERS: PCP Family Medicine; Visit Provider Family Medicine
DX: I10 Essential (primary) hypertension (principal)
CPT/HCPCS: 36415; 80053; 80061; 85025

== ENCOUNTER 2024-09-02 15:19 | Outpatient (CLI) | payer MEDICARE, MEDICAID, SELFPAY ==
--- OUTSIDE RECORDS SUMMARY | 2024-09-02 15:30 | XMS_ITS | CONTINUITY OF CARE DOCUMENT ---
Author Name sharlene su Address Unknown Organization [facility] Address [address] [place] [address] Phone [phone] Care Team Providers Care Vp Global Name Role Phone sharlene su Unavailable Unavailable
--- OUTSIDE RECORDS SUMMARY | 2024-09-02 15:30 | XMS_ITS ---
Author Organization [facility] Address [address] [place] [address] Care Team Providers Care Registered Nurse Name Role Phone Anselmo Avalos MD Primary [...] Immune Assessment & Plan (05/22/2024 10:42 AM TAXI SERVICER): CD doing well. On stelara q 4 weeks. FS CD. Will continue same and f/u in 6 mo. Assessment & Plan (11/15/2023 8:59 AM CDT): CD doing well. Will continue same and f/u in 6 mo. Assessment & Plan (04/05/2023 11:32 AM TAXI SERVICER): CD with abdominal pain and chills. Pain [...] imaging. Assessment & Plan (04/27/2022 10:10 AM TAXI SERVICER): CD early into Stelara. Will check FC and f/up in 3-4 months. Hopefully the fc has dropped.. Assessment & Plan (06/09/2021 9:18 AM TAXI SERVICER): Patient with penetrating CD IC still on [...]
--- OUTSIDE RECORDS SUMMARY | 2024-09-02 15:30 | XMS_ITS | Clinical Summary ---
Author Organization [facility] Address [address] [place] [address] Care Team Providers Care Math Professor Name Role Phone Anselmo Avalos MD Primary [...] 4 WEEKS 1 mL 2 5 Active ustekinumab-kf ce (Yesintek) 90 mg/mL syringeIndicat ions:Crohn's Disease Inject 90 mg under the skin every 4 (four) weeks 1 mL 3 5 Active Active Problems Problem Noted Date [...] Immune Assessment & Plan (05/22/2024 10:42 AM ENVIRONMENTAL FIELD SERVICES TECHNICIAN): CD doing well. On stelara q 4 weeks. FS CD. Will continue same and f/u in 6 mo. Assessment & Plan (11/15/2023 8:59 AM CDT): CD doing well. Will continue same and f/u in 6 mo. Assessment & Plan (04/05/2023 11:32 AM ENVIRONMENTAL FIELD SERVICES TECHNICIAN): CD with abdominal pain and chills. Pain [...] imaging. Assessment & Plan (04/27/2022 10:10 AM ENVIRONMENTAL FIELD SERVICES TECHNICIAN): CD early into Stelara. Will check FC and f/up in 3-4 months. Hopefully the fc has dropped.. Assessment & Plan (06/09/2021 9:18 AM ENVIRONMENTAL FIELD SERVICES TECHNICIAN): Patient with penetrating CD IC still on [...] Encounters Date Type Department Care Team Description 08/29/2024 Orders Only [facility] Gastroenterology [address] [place] [address] [place] [address] Bora Bains MD High risk medications (not anticoagulants) long-term use (Primary Dx); Crohn's disease of small intestine with fistula (HCC) 08/27/2024 Documentation [facility] [address] [place] [address] Tamy Gomez CPhT 08/21/2024 Orders Only [facility] Gastroenterology [address] Medical Office Building [address] [place] [address] Bora Bains MD from Last 3 Months Surgical History Surgery [...] CDT Respiratory Rate 18 02/10/2022 2:14 PM ENVIRONMENTAL FIELD SERVICES TECHNICIAN Oxygen Saturation 98% 11/15/2023 8:27 AM CDT Inhaled Oxygen Concentration - - Weight 65.8 kg (145 lb) 11/15/2023 8:27 AM CDT Height 167.6 cm (5' 6) 11/15/2023 8:27 AM CDT Body Mass Index [...] Female Attending MD: Megha Grover M.D. Room: [facility] OR POD 5 ROOM 224 Note Status: [...] the bowel preparation was evaluated using the BBPS([place] Bowel Preparation Scale) with scores of: RightColon [...] On: 01/29/2021 11:56 AM Recognized by the [place] Society for Gastrointestinal Endoscopy for promoting quality in endoscopy Megha Grover MD ENDOSCOPY PROCEDURES Final Resu lt from Last 3 Months or Most Recently Relevant to Health Maintenance Insurance [facility] MEDICARE ADVANTAGE [facility] MEDICARE ADVANTAGE Advance Directives For more information, please contact: [phone] * Full Code (Latest Code Status on File) Date Activated Date Inactivated Comments 01/27/2021 11:21 PM 01/29/2021 11:16 PM Care Teams Math Professor Relationship Specialty Start Date End Date Anselmo Avalos MD [address] [place] [address] PCP - General Family Medicine 02/02/21
--- OUTSIDE RECORDS SUMMARY | 2024-09-02 15:30 | XMS_ITS | Referral Summary ---
Author Organization [facility] Address [address] [place] [address] Care Team Providers Care Main Galley Scullion Name Role Phone Anselmo Avalos MD Primary Care Provide r Encounters Date Type Department Care Team Description 08/29/2024 Orders Only [facility] [facility] Gastroenterology [address] [place] [address] [place] [address] Bora Bains MD High risk medications (not anticoagulants) long-term use (Primary Dx); Crohn's disease of small intestine with fistula (HCC) 08/27/2024 Documentation [facility] [address] [place] [address] Tamy Gomez CPhT 08/21/2024 Orders Only [facility] [facility] Gastroenterology [address] [place] [address] Bora Bains MD from Last 3 Months Allergies No known [...] daily Active UNABLE TO FIND Med Name: [employer] health eye floaters formula 1 daily Active [...] Immune Assessment & Plan (05/22/2024 10:42 AM ADDICTION PSYCHIATRIST): CD doing well. On stelara q 4 weeks. FS CD. Will continue same and f/u in 6 mo. Assessment & Plan (11/15/2023 8:59 AM CDT): CD doing well. Will continue same and f/u in 6 mo. Assessment & Plan (04/05/2023 11:32 AM ADDICTION PSYCHIATRIST): CD with abdominal pain and chills. Pain [...] imaging. Assessment & Plan (04/27/2022 10:10 AM ADDICTION PSYCHIATRIST): CD early into Stelara. Will check FC and f/up in 3-4 months. Hopefully the fc has dropped.. Assessment & Plan (06/09/2021 9:18 AM ADDICTION PSYCHIATRIST): Patient with penetrating CD IC still on [...] CDT Respiratory Rate 18 02/10/2022 2:14 PM ADDICTION PSYCHIATRIST Oxygen Saturation 98% 11/15/2023 8:27 AM CDT [...] Female Attending MD: Megha Grover M.D. Room: [facility] OR POD 5 ROOM 224 Note Status: [...] the bowel preparation was evaluated using the BBPS([place]asper Bowel Preparation Scale) with scores of: RightColon [...] On: 01/29/2021 11:56 AM Recognized by the [place] [employer]intestinal [employer] for promoting quality in endoscopy Megha Grover MD ENDOSCOPY PROCEDURES Final Resu lt from Last 3 Months or Most Recently Relevant to Health Maintenance Insurance [facility] MEDICARE ADVANTAGE Advance Directives For more information, please contact: [phone] * Full Code (Latest Code Status on File) Date Activated Date Inactivated Comments 01/27/2021 11:21 PM 01/29/2021 11:16 PM Care Teams Main Galley Scullion Relationship Specialty Start Date End Date Anselmo Avalos MD [address] [place] [address] PCP - General Family Medicine 02/02/21
[2024-09-02 15:33] LABS: Basophils Absolute Auto 0.04 K/mm3 (0.00-0.10); Basophils Percent Auto 0.5 % (0.0-1.0); Eosinophils Absolute Auto 0.12 K/mm3 (0.02-0.50); Eosinophils Percent Auto 1.6 % (1.0-6.0); Hematocrit 38.5 % (35.0-42.0); Hemoglobin 12.9 g/dL (11.7-13.8); Immature Granulocyte Absolute 0.02 K/mm3 (0.00-0.00); Immature Granulocyte Percent A 0.3 % (0.0-0.0); Lymphocytes Absolute Auto 3.21 K/mm3 (1.10-4.50); Lymphocytes Percent Auto 43.8 % (18.0-42.0); Mean Corpuscular HGB Conc 33.5 g/dL (32-36); Mean Corpuscular Hemoglobin 29.5 pg (27.0-31.0); Mean Corpuscular Volume 88.1 fL (78.0-102.0); Mean Platelet Volume 9.6 fl (9.2-11.8); Monocytes Absolute Auto 0.41 K/mm3 (0.10-0.90); Monocytes Percent Auto 5.6 % (2.0-11.0); Neutrophils Absolute Auto 3.53 K/mm3 (1.70-7.20); Neutrophils Percent Auto 48.2 % (50.0-70.0); Platelet Count Result 226 K/mm3 (150-420); Red Blood Count 4.37 M/mm3 (4.20-5.40); Red Cell Distribution Width 12.9 % (11.6-14.4); White Blood Count 7.3 K/mm3 (4.8-10.8)
[2024-09-02 16:15] LABS: Alanine Aminotransferase 20 U/L (6-35); Albumin Level 4.4 g/dL (3.5-5.1); Alkaline Phosphatase 74 U/L (38-126); Anion Gap 4 mmol/L (4-12); Aspartate Amino Transferase 31 U/L (14-36); Bilirubin,Total 0.5 mg/dL (0.2-1.3); Blood Urea Nitrogen 17 mg/dL (7-17); CRP < 0.5 mg/dL (<1.0); Carbon Dioxide 31 mmol/L (22-30); Chloride 104 mmol/L (98-107); Estimated Glomerular Filt Rate 58; Glucose 91 mg/dL (65-110); Osmolality Calculated 289 mOsm/kg (285-295); Potassium 3.9 mmol/L (3.4-5.0); Sodium 139 mmol/L (137-145); Total Protein 7.5 g/dL (6.3-8.2)
[2024-09-05 08:52] LABS: NIL 0.02 IU/mL; Quantiferon TB Plus, 1T NEGATIVE (NEGATIVE); TB1-NIL 0.04 IU/mL; TB2-NIL 0.04 IU/mL
== END 2024-09-02 15:20 | disposition home or self-care (01) ==
LOC: CHSLAB 15:21
PROVIDERS: PCP Family Medicine; Visit Provider Internal Medicine Gastroenterology
DX: K50.013 Crohn's disease of small intestine with fistula (principal); Z79.899 Other long term (current) drug therapy
CPT/HCPCS: 36415; 80053; 85025; 86140; 86480

== ENCOUNTER 2025-02-20 11:03 | Outpatient (CLI) | payer MEDICARE, MEDICAID, SELFPAY ==
[2025-02-20 11:20] LABS: Hematocrit 40.5 % (35.0-42.0); Hemoglobin 13.6 g/dL (11.7-13.8); Mean Corpuscular HGB Conc 33.6 g/dL (32-36); Mean Corpuscular Hemoglobin 29.4 pg (27.0-31.0); Mean Corpuscular Volume 87.7 fL (78.0-102.0); Platelet Count Result 254 K/mm3 (150-420); Red Blood Count 4.62 M/mm3 (4.20-5.40); White Blood Count 7.5 K/mm3 (4.8-10.8)
[2025-02-20 11:38] LABS: Alanine Aminotransferase 24 U/L (6-35); Albumin Level 5.0 g/dL (3.5-5.1); Alkaline Phosphatase 87 U/L (38-126); Anion Gap 10 mmol/L (4-12); Aspartate Amino Transferase 34 U/L (14-36); Bilirubin,Total 0.6 mg/dL (0.2-1.3); Blood Urea Nitrogen 18 mg/dL (7-17); Calcium 9.2 mg/dL (8.4-10.2); Carbon Dioxide 32 mmol/L (22-30); Chloride 100 mmol/L (98-107); Estimated Glomerular Filt Rate 53; Glucose 105 mg/dL (65-110); Osmolality Calculated 295 mOsm/kg (285-295); Potassium 3.7 mmol/L (3.4-5.0); Sodium 142 mmol/L (137-145); Total Protein 8.2 g/dL (6.3-8.2)
[2025-02-20 12:09] LABS: Thyroid Stimulating Hormone 2.870 uIU/mL (0.465-4.680)
[2025-02-20 12:21] LABS: MALB Creatinine Ratio 10.4 mg/g (0-30)
--- OUTSIDE RECORDS SUMMARY | 2025-02-20 13:53 | XMS_ITS | Encounter Summary ---
Author Organization [facility] Address [address] [place] [address] Phone Care Team Providers Care Television Camera Operator Name Role Phone Anselmo Avalos MD Primary Care Provide r Encounter Details Date Type Department Care Team (Late st Contact Info) Description 08/02/2024 Orders Only [facility] Scanning, Provider Social History Tobacco Use Types Packs/Day Years Used Date Smoking Tobacco: Former Cigarettes 0.5 25 0 09/03/1997 - 09/03/2022 Passive Smoke Exposure: Past Smokeless Tobacco: Never Alcohol Use Standard Drinks/Week Comments Not Currently [...] on file Sexual Orientation Not on file documented as of this encounter Plan of Treatment Not on file documented as of this encounter Procedures Procedure Name Priority Date/Time Associated Diagnosis Comments SCAN - LABS 08/02/2024 documented in this encounter Results * SCAN - LABS (08/02/2024) us Provider Scanning Final Result documented in this encounter Visit Diagnoses Not on filedocumented in this encounter Care Teams Television Camera Operator Relationship Specialty Start Date End Date Anselmo Avalos MD [address] [place] [address] PCP - General Family Medicine 02/02/21 documented as of this encounter
--- OUTSIDE RECORDS SUMMARY | 2025-02-20 13:53 | XMS_ITS | Clinical Summary ---
Author Organization [facility] Address [address] [place] [address] Care Team Providers Care African History Professor Name Role Phone Anselmo Avalos MD Primary Care Provide r Allergies Active Allergy Reactions Criticality Noted Date Comments Kiwi Other (See comments) 01/26/2021 Medications alendronate (FOSAMAX) 70 mg tablet TAKE [...] (2 g total) by mouth daily Active Yesintek 90 mg/mL syringe INJECT 1 SYRINGE SUBCUTANEOUSLY EVERY 4 WEEKS 1 mL 3 5 Active Active Problems [...] vaccination status: Non Immune Assessment & Plan (11/20/2024 11:42 AM CDT): Penetrating CD doing well on stelara bisimilar. Will continue same and f/u in 6 mo. Assessment & Plan (05/22/2024 10:42 AM DATA MIGRATION CONSULTANT): CD doing well. On stelara q 4 weeks. FS CD. Will continue same and f/u in 6 mo. Assessment & Plan (11/15/2023 8:59 AM CDT): CD doing well. Will continue same and f/u in 6 mo. Assessment & Plan (04/05/2023 11:32 AM DATA MIGRATION CONSULTANT): CD with abdominal pain and chills. Pain [...] imaging. Assessment & Plan (04/27/2022 10:10 AM DATA MIGRATION CONSULTANT): CD early into Stelara. Will check FC and f/up in 3-4 months. Hopefully the fc has dropped.. Assessment & Plan (06/09/2021 9:18 AM DATA MIGRATION CONSULTANT): Patient with penetrating CD IC still on [...] Encounters Date Type Department Care Team Description 11/27/2024 Documentation Gastroententerology Julia Thomas M.A. 11/20/2024 11:20 AM CDT Office Visit [facility] Gastroenterology [address] [place] [address] Medical Office Building [address] [place] [address] Bora Bains MD Crohn's disease [...] Sign Reading Time Taken Comments Blood Pressure 179/95 11/20/2024 11:28 AM CDT Pulse 94 11/20/2024 11:28 AM CDT Temperature 36.8 C (98.2 F) 11/20/2024 11:28 AM CDT Respiratory Rate 18 02/10/2022 2:14 PM DATA MIGRATION CONSULTANT Oxygen Saturation 97% 11/20/2024 11:28 AM CDT Inhaled Oxygen Concentration - - Weight 65.9 kg (145 lb 3.2 oz) 11/20/2024 11:28 AM CDT Height 167.6 cm (5' 6) 11/20/2024 11:28 AM CDT Body Mass Index 23.44 11/20/2024 11:28 AM CDT Plan of Treatment Health Maintenance Due Date Last Done Comments Breast Cancer Screening-Mammogram 1955 Depression Screening 1955 Hepatitis C Screening 1955 Osteoporosis Screening-Bone Density Scan 1955 DTaP/Tdap/Td Vaccine (1 - Tdap) 1968 Pneumococcal vaccine 65+ (1 of 1 - PCV) 08/20/2007 Zoster Vaccine (1 of 2) 08/20/2007 Fall Risk Assessment 01/29/2022 01/29/2021 Well Visit 65+ 2022 Influenza Vaccine (#1) 2024 02/06/2023 Colon Cancer Screening-Colonoscopy 01/29/20312020 Hepatitis B Screening Completed 01/29/2021 Procedures Procedure Name Priority Date/Time Associated Diagnosis [...] Female Attending MD: Megha Grover M.D. Room: [facility] OR POD 5 ROOM 224 Note Status: Finalized Procedure: Colonoscopy Indications: Abnormal CT of the GI tract, Suspected Crohn'sdisease of the small bowel Referring MD: Kate Monroe M.D. Providers: Megha Grover M.D.Tamy M.D. Medicines: Monitored Anesthesia Care Complications: No [...] the bowel preparation was evaluated using the BBPS([place] Bowel Preparation Scale) with scores of: RightColon [...] On: 01/29/2021 11:56 AM Recognized by the [employer] [place] [employer] Gastrointestinal Endoscopy for promoting quality in endoscopy Megha Grover MD ENDOSCOPY PROCEDURES Final Resu lt from Last 3 Months or Most Recently Relevant to Health Maintenance Insurance [facility] MEDICARE ADVANTAGE [facility] Address: [facility] [address] [place] [address] [facility] MEDICARE ADVANTAGE [facility] Address: [facility] [address] [place] [address] Advance Directives For more information, please contact: [phone] * Full Code (Latest Code Status on File) Date Activated Date Inactivated Comments 01/27/2021 11:21 PM 01/29/2021 11:16 PM Care Teams African History Professor Relationship Specialty Start Date End Date Anselmo Avalos MD [address] [place] [address] PCP - General Family Medicine 02/02/21
--- OUTSIDE RECORDS SUMMARY | 2025-02-20 13:53 | XMS_ITS ---
Author Organization [facility] Address [address] [place] [address] Care Team Providers Care Manager Mechanical Maintenance Name Role Phone Anselmo Avalos MD Primary [...] mo. Assessment & Plan (05/22/2024 10:42 AM PUBLIC HEALTH EPIDEMIOLOGIST): CD doing well. On stelara q 4 weeks. FS CD. Will continue same and f/u in 6 mo. Assessment & Plan (11/15/2023 8:59 AM CDT): CD doing well. Will continue same and f/u in 6 mo. Assessment & Plan (04/05/2023 11:32 AM PUBLIC HEALTH EPIDEMIOLOGIST): CD with abdominal pain and chills. Pain [...] imaging. Assessment & Plan (04/27/2022 10:10 AM PUBLIC HEALTH EPIDEMIOLOGIST): CD early into Stelara. Will check FC and f/up in 3-4 months. Hopefully the fc has dropped.. Assessment & Plan (06/09/2021 9:18 AM PUBLIC HEALTH EPIDEMIOLOGIST): Patient with penetrating CD IC still on [...]
== END 2025-02-20 11:04 | disposition home or self-care (01) ==
PROVIDERS: PCP Family Medicine; Visit Provider Family Medicine
DX: I10 Essential (primary) hypertension (principal)
CPT/HCPCS: 36415; 80053; 82043; 84443; 85027